=== PATIENT | male | born 1990 | race Caucasian/White ===

== ENCOUNTER → 2017-08-19 | Outpatient (CLI) | payer BC | LOC: COL.RAD 13:51 | DX: S43.491A Other sprain of right shoulder joint, initial encounter (principal); S43.021D Posterior subluxation of right humerus, subsequent encounter; R60.0 Localized edema; M89.311 Hypertrophy of bone, right shoulder; G89.11 Acute pain due to trauma | CPT/HCPCS: A9585; Q9967 ==